=== PATIENT | female | born 1975 | race Caucasian/White ===

== ENCOUNTER 2022-03-20 23:12 | Observation (INO) ==
[2022-03-21 00:42] LABS: Basophils % 0.4 %; Eosinophils # 0.1 K/mcL (0.0-0.6); Eosinophils % 0.8 %; Hematocrit 36.2 % (35.3-44.9); Hemoglobin 11.7 g/dL (11.5-15.4); Immature Granulocytes % 0.6 % (0-4); Lymphocytes # 2.1 K/mcL (0.6-4.6); Lymphocytes % 19.1 %; Mean Corpuscular HGB Conc 32.3 g/dL (31.6-35.5); Mean Corpuscular Hemoglobin 28.2 pg (28.0-33.3); Mean Corpuscular Volume 87.2 fL (83.0-100.0); Mean Platelet Volume 11.5 fL (9.4-12.4); Monocytes # 0.4 K/mcL (0.0-1.3); Monocytes % 3.7 %; Neutrophils # 8.3 K/mcL (1.6-8.9); Platelet Count 200 K/mcL (140-400); Red Blood Count 4.15 M/mcL (3.82-4.97); Red Cell Distribution Width 14.7 % (11.5-14.5); Segmented Neutrophils % 75.4 %
[2022-03-21 00:50] LABS: Prothrombin Time 11.4 Seconds (9.4-12.1)
[2022-03-21] MEDS ORDERED: Isovue-370 500 ML BOTTLE IVP ONE (00:57)
[2022-03-21 01:02] LABS: Alanine Aminotransferase 31 Units/L (7-52); Albumin 3.6 g/dL (3.5-5.7); Albumin/Globulin Ratio 0.9 (1.1-2.2); Alkaline Phosphatase 98 Units/L (34-104); Aspartate Amino Transferase 31 Units/L (13-39); BUN/Creatinine Ratio 10 (6-26); Bilirubin,Total 0.4 mg/dL (0.3-1.0); Blood Urea Nitrogen 8 mg/dL (6-20); Calcium 8.7 mg/dL (8.6-10.3); Carbon Dioxide 25 mEq/L (23-29); Chloride 103 mEq/L (98-107); Globulin 3.9 g/dL (2.4-3.5); Glucose 87 mg/dL (70-105); Osmolality,Calculated 278 (280-300); Potassium 3.8 mEq/L (3.5-5.1); Sodium 135 mEq/L (136-145); Total Protein 7.5 g/dL (6.4-8.9); Troponin I < 0.03 ng/mL (< 0.04); eGFR For African Americans > 60 (> 60); eGFR For Non-African Americans > 60 (> 60)
[2022-03-21] MEDS ORDERED: *HR* LORazepam 2 MG/ML VIAL IVP ONE (01:38)
[2022-03-21] MEDS ORDERED: levoFLOXacin 750 MG/150 ML 750 MG/150 ML BAG IVPB STA (02:50)
[2022-03-21] MEDS ORDERED: Ondansetron ODT 4 MG TAB.RAPDIS PO PRN (06:37)
[2022-03-21] MEDS ORDERED: hydrOXYzine pamoate 25 MG CAPSULE PO PRN (06:37)
[2022-03-21] MEDS ORDERED: Naloxone 0.4 MG/ML INJ IVP PRN (06:37)
[2022-03-21] MEDS ORDERED: (Rizatriptan Benzoate [Maxalt] 10 MG Tablet) PO PRN (06:37)
[2022-03-21] MEDS ORDERED: NON-FORMULARY MEDICATION 1 EACH EACH (Buprenorphine Hcl/Naloxone Hcl [Suboxone 8 Mg-2 Mg S SL SCH (09:00)
[2022-03-21] MEDS ORDERED: Lithium Oral Soln 300 MG/5 ML (8 mEq/5mL) UDC PO SCH (09:00)
[2022-03-21] MEDS ORDERED: OXcarbazepine 150 MG TABLET PO SCH (09:00)
[2022-03-21] MEDS ORDERED: QUEtiapine Fumarate 100 MG TABLET PO SCH (09:00)
[2022-03-21] MEDS ORDERED: lamoTRIgine 100 MG TABLET PO SCH (09:00)
[2022-03-21] MEDS: lisinopriL 10 MG TABLET PO SCH (09:03)
[2022-03-21] MEDS: Gabapentin 400 MG CAPSULE PO SCH ×3 (09:03→21:35)
[2022-03-21] MEDS ORDERED: Benzonatate 100 MG CAPSULE PO PRN (09:33)
[2022-03-21] MEDS: Ipratropium/Albuterol Neb 3 ML IH SCH ×3 (10:06→21:17)
[2022-03-21] MEDS: Nicotine 14 MG PATCH.TD24 TD SCH (10:36)
[2022-03-21] MEDS: *HR* Methadone 10 MG TABLET PO SCH (10:36)
[2022-03-21 11:03] LABS: Adenovirus Not Detected (Not Detect); Bordetella Pertussis Not Detected (Not Detect); Chlamydophila pneumoniae Not Detected (Not Detect); Coronavirus 229E Not Detected (Not Detect); Coronavirus HKU1 Not Detected (Not Detect); Coronavirus NL63 Not Detected (Not Detect); Coronavirus OC43 Not Detected (Not Detect); Human Metapneumovirus Not Detected (Not Detect); Human Rhinovirus/Enterovirus Not Detected (Not Detect); Influenza A Subtype 2009 H1 Not Detected (Not Detect); Influenza B Not Detected (Not Detect); Mycoplasma pneumoniae Not Detected (Not Detect); Parainfluenza Virus 1 Not Detected (Not Detect); Parainfluenza Virus 2 Not Detected (Not Detect); Parainfluenza Virus 3 Not Detected (Not Detect); Parainfluenza Virus 4 Not Detected (Not Detect); Respiratory Syncytial Virus Not Detected (Not Detect); SARS-CoV-2 Not Detected (Not Detect)
[2022-03-21] MEDS: cloNIDine HCL 0.1 MG TABLET PO SCH ×2 (12:33→21:35)
[2022-03-21] MEDS: ADDERALL 20 MG PO SCH (12:34)
[2022-03-21] MEDS: MethylPREDNISolone 40 MG/ML VIAL IVP SCH (15:19)
[2022-03-21] MEDS: QUEtiapine Fumarate 100 MG TABLET PO SCH (21:34)
[2022-03-22] MEDS: MethylPREDNISolone 40 MG/ML VIAL IVP SCH ×3 (00:05→20:13)
[2022-03-22 00:33] LABS: Amphetamine Screen,Urine Negative ng/mL (Cutoff=1000); Barbiturate Screen,Urine Negative ng/mL (Cutoff=200); Benzodiazepines Screen,Urine Negative ng/mL (Cutoff=200); Cannabinoid Screen,Urine Negative ng/mL (Cutoff = 50); Cocaine Screen,Urine Negative ng/mL (Cutoff= 300); Opiate Screen,Urine Negative ng/mL (Cutoff=300); Phencyclidine Screen,Urine Negative ng/mL (Cutoff=25)
[2022-03-22] MEDS: *HR* Enoxaparin 40 MG/0.4 ML SYRINGE SQ SCH (05:48)
[2022-03-22] MEDS: Ipratropium/Albuterol Neb 3 ML IH SCH ×4 (06:15→21:46)
[2022-03-22] MEDS: ADDERALL 20 MG PO SCH (07:27)
[2022-03-22] MEDS: Gabapentin 400 MG CAPSULE PO SCH ×3 (07:37→20:11)
[2022-03-22] MEDS: cloNIDine HCL 0.1 MG TABLET PO SCH ×2 (07:37→20:11)
[2022-03-22] MEDS: *HR* Methadone 10 MG TABLET PO SCH (07:39)
[2022-03-22] MEDS: Nicotine 14 MG PATCH.TD24 TD SCH (07:39)
[2022-03-22] MEDS: lisinopriL 10 MG TABLET PO SCH (07:40)
[2022-03-22 07:49] LABS: Basophils % 0.1 %; Hematocrit 34.2 % (35.3-44.9); Immature Granulocytes % 0.5 % (0-4); Lymphocytes # 1.4 K/mcL (0.6-4.6); Mean Corpuscular HGB Conc 32.2 g/dL (31.6-35.5); Mean Corpuscular Hemoglobin 27.8 pg (28.0-33.3); Mean Corpuscular Volume 86.6 fL (83.0-100.0); Mean Platelet Volume 11.1 fL (9.4-12.4); Monocytes # 0.8 K/mcL (0.0-1.3); Monocytes % 4.3 %; Neutrophils # 15.4 K/mcL (1.6-8.9); Platelet Count 255 K/mcL (140-400); Red Blood Count 3.95 M/mcL (3.82-4.97); Red Cell Distribution Width 14.8 % (11.5-14.5); Segmented Neutrophils % 87.1 %; White Blood Count 17.7 K/mcL (4.3-11.1)
[2022-03-22 09:03] LABS: BUN/Creatinine Ratio 17 (6-26); Blood Urea Nitrogen 17 mg/dL (6-20); Calcium 9.1 mg/dL (8.6-10.3); Carbon Dioxide 27 mEq/L (23-29); Chloride 105 mEq/L (98-107); Glucose 123 mg/dL (70-105); Osmolality,Calculated 287 (280-300); Potassium 4.1 mEq/L (3.5-5.1); Sodium 137 mEq/L (136-145); eGFR For African Americans > 60 (> 60); eGFR For Non-African Americans 59 (> 60)
[2022-03-22] MEDS: levoFLOXacin 750 MG/150 ML 750 MG/150 ML BAG IVPB SCH (10:13)
[2022-03-22 15:22] VITALS: RESP 18
[2022-03-22] MEDS: QUEtiapine Fumarate 100 MG TABLET PO SCH (20:13)
[2022-03-23] MEDS: Ipratropium/Albuterol Neb 3 ML IH SCH ×2 (04:07→09:05)
[2022-03-23] MEDS: *HR* Enoxaparin 40 MG/0.4 ML SYRINGE SQ SCH (06:43)
[2022-03-23 07:07] LABS: Basophils % 0.2 %; Hematocrit 32.8 % (35.3-44.9); Hemoglobin 10.4 g/dL (11.5-15.4); Immature Granulocytes % 1.5 % (0-4); Lymphocytes % 15.3 %; Mean Corpuscular HGB Conc 31.7 g/dL (31.6-35.5); Mean Corpuscular Hemoglobin 28.1 pg (28.0-33.3); Mean Corpuscular Volume 88.6 fL (83.0-100.0); Mean Platelet Volume 10.7 fL (9.4-12.4); Monocytes # 0.5 K/mcL (0.0-1.3); Monocytes % 3.9 %; Platelet Count 227 K/mcL (140-400); Red Cell Distribution Width 15.6 % (11.5-14.5); Segmented Neutrophils % 79.1 %; White Blood Count 13.2 K/mcL (4.3-11.1)
[2022-03-23 07:29] LABS: Neutrophils # 10.4 K/mcL (1.6-8.9)
[2022-03-23 07:38] VITALS: BP 117/78; PULSE 84; TEMP 97.4
[2022-03-23] MEDS: *HR* Methadone 10 MG TABLET PO SCH (07:56)
[2022-03-23] MEDS: cloNIDine HCL 0.1 MG TABLET PO SCH (07:57)
[2022-03-23] MEDS: Gabapentin 400 MG CAPSULE PO SCH (07:57)
[2022-03-23] MEDS: Nicotine 14 MG PATCH.TD24 TD SCH (07:58)
[2022-03-23] MEDS: lisinopriL 10 MG TABLET PO SCH (07:58)
[2022-03-23] MEDS: levoFLOXacin 750 MG/150 ML 750 MG/150 ML BAG IVPB SCH (07:59)
[2022-03-23] MEDS: ADDERALL 20 MG PO SCH (07:59)
[2022-03-23] MEDS: MethylPREDNISolone 40 MG/ML VIAL IVP SCH (07:59)
[2022-03-23 08:55] LABS: BUN/Creatinine Ratio 14 (6-26); Blood Urea Nitrogen 15 mg/dL (6-20); Calcium 8.6 mg/dL (8.6-10.3); Carbon Dioxide 24 mEq/L (23-29); Chloride 107 mEq/L (98-107); Glucose 180 mg/dL (70-105); Osmolality,Calculated 287 (280-300); Potassium 3.6 mEq/L (3.5-5.1); Sodium 136 mEq/L (136-145); eGFR For African Americans > 60 (> 60); eGFR For Non-African Americans 55 (> 60)
[2022-03-23] MEDS ORDERED: Sennosides 8.6 MG TABLET PO SCH (09:00)
[2022-03-23 09:11] VITALS: O2SAT 98
== END 2022-03-23 10:42 | disposition home or self-care (01) ==
LOC: EMEROOPIK 23:12 → INPPIK 23:12
PROVIDERS: ADMIT Student in an Organized Health Care Education/Training Program; ATTEND Student in an Organized Health Care Education/Training Program